=== PATIENT | female | born 1985 | race Caucasian/White ===

== ENCOUNTER 2016-03-06 21:03 | Emergency (ER) | payer OTHER ==
[~2016-03-06] VITALS: Ht 152.4 cm; Wt 51.7 kg
[~2016-03-06 21:03] MED LIST: AMOXICILLI400 MG/51 PO; AMOXICILLIN500 M2 PO; ATARAX25 MG PO; BACTRIM DS 8001 TA1 PO; BENADRYL25 M1 PO; DIPHEDRYL25 M3 PO; HYDROCORT CREAM2.5% TP; KEFLEX500 MG PO; KENALOG 0.1%80 GM T; KENALOG0.1% TP; MACROBID100 M1 PO; MOTRIN800 MG PO; NKHM; NORCO 325 MG-51 TAB PO; PEPCID20 MG PO; PERCOCET 325 MG1 TA6 PO; SPRINTEC 35 MCG1 TA2 PO; TERBUTALINE SC; ULTRAM50 MG PO; ZOFRAN ODT4 MG SL; ZOFRAN4 MG PO
[2016-03-06] MEDS ORDERED: VISTARIL50 MG PO (21:24)
[2016-03-06] MEDS ORDERED: ELIMITE 5%60 GM T (21:24)
[2016-03-17] MEDS ORDERED: LIDEX 0.05% CRE15 GM T (14:14)
== END 2016-03-06 21:33 | disposition home or self-care (01) ==
LOC: ED 21:03
DX: B86 Scabies (principal)

== ENCOUNTER 2016-05-19 14:25 | Emergency (ER) | payer OTHER ==
[~2016-05-19 14:25] MED LIST changes: +ELIMITE 5%60 GM T; +LIDEX 0.05% CRE15 GM T; +VISTARIL50 MG PO
[2016-05-19 14:42] LABS: BILIRUBIN 1+ (NEGATIVE); BLOOD 3+ (NEGATIVE); CLARITY TURBID (CLEAR); COLOR BROWN (YELLOW); GLUCOSE TRACE (NEGATIVE); KETONE TRACE (NEGATIVE); LEUKO ESTERASE TRACE (NEGATIVE); NITRITE POSITIVE (NEGATIVE); PH 6.5 (5.0-9.0); PROTEIN 3+ (NEGATIVE); SPECIFIC GRAVITY >= 1.030 (1.005-1.030)
[2016-05-19 14:50] LABS: EPITHELIAL CELLS TNTC; RBC TNTC rbc/hpf (0-2)
[2016-05-19 14:51] LABS: BACTERIA 1+; URINE REFLEX COMMENT YES (NO)
[2016-05-19] MEDS ORDERED: Bactrim 200 MG/30 ML PO (15:04)
== END 2016-05-19 15:09 | disposition home or self-care (01) ==
LOC: ED 14:25
PROVIDERS: Emergency Medicine Emergency Medical Services
DX: N30.01 Acute cystitis with hematuria (principal); J02.0 Streptococcal pharyngitis; Z98.51 Tubal ligation status

== ENCOUNTER 2017-02-18 18:56 | Emergency (ER) | payer OTHER ==
[~2017-02-18] VITALS: Ht 154.9 cm; Wt 57.6 kg
[~2017-02-18 18:56] MED LIST changes: +Bactrim 200 MG/30 ML PO
[2017-02-18] MEDS ORDERED: OMNICEF300 MG PO (19:46)
== END 2017-02-18 19:50 | disposition home or self-care (01) ==
LOC: ED 18:56
DX: H66.91 Otitis media, unspecified, right ear (principal); Z98.51 Tubal ligation status

== ENCOUNTER 2017-02-21 12:00 | Emergency (ER) | payer OTHER ==
[~2017-02-21] VITALS: Ht 154.9 cm; Wt 57.6 kg
[~2017-02-21 12:00] MED LIST changes: +OMNICEF300 MG PO
[2017-02-21] MEDS ORDERED: CIPRODEX 0.3%-7.5 ML OT (12:56)
== END 2017-02-21 13:01 | disposition home or self-care (01) ==
LOC: ED 12:00
DX: H66.92 Otitis media, unspecified, left ear (principal); Z98.51 Tubal ligation status

== ENCOUNTER 2018-09-11 11:46 | Emergency (ER) | payer OTHER ==
[~2018-09-11] VITALS: Ht 172.7 cm; Wt 71.7 kg
[~2018-09-11 11:46] MED LIST changes: +CIPRODEX 0.3%-7.5 ML OT
[2018-09-11] MEDS ORDERED: AMOXICILLIN500 M2 PO (12:45)
== END 2018-09-11 12:54 | disposition home or self-care (01) ==
LOC: ED 11:46
DX: J02.0 Streptococcal pharyngitis (principal); Z79.2 Long term (current) use of antibiotics

== ENCOUNTER 2019-04-29 19:16 | Emergency (ER) | payer OTHER ==
[~2019-04-29] VITALS: Ht 152.4 cm; Wt 63.5 kg
== END 2019-04-29 21:52 | disposition home or self-care (01) ==
LOC: ED 19:16
DX: S86.911A Strain of unspecified muscle(s) and tendon(s) at lower leg level, right leg, initial encounter (principal); Z79.2 Long term (current) use of antibiotics; Z87.891 Personal history of nicotine dependence; X58.XXXA Exposure to other specified factors, initial encounter; Y93.89 Activity, other specified; Y92.89 Other specified places as the place of occurrence of the external cause; Y99.8 Other external cause status

== ENCOUNTER 2020-10-23 23:25 | Emergency (ER) | payer OTHER ==
[~2020-10-23] VITALS: Ht 152.4 cm; Wt 63.5 kg
== END 2020-10-24 00:11 | disposition home or self-care (01) ==
LOC: ED 23:25
DX: S60.221A Contusion of right hand, initial encounter (principal); Z79.2 Long term (current) use of antibiotics; Z98.51 Tubal ligation status; W22.01XA Walked into wall, initial encounter; Y93.89 Activity, other specified; Y92.89 Other specified places as the place of occurrence of the external cause; Y99.8 Other external cause status

== ENCOUNTER 2020-10-25 11:41 | Emergency (ER) | payer OTHER ==
[~2020-10-25] VITALS: Wt 63.5 kg
== END 2020-10-25 16:39 | disposition home or self-care (01) ==
LOC: ED 11:41
DX: J02.9 Acute pharyngitis, unspecified (principal); Z20.822 Contact with and (suspected) exposure to COVID-19; R05 Cough; R19.7 Diarrhea, unspecified

== ENCOUNTER 2021-11-15 15:25 | Emergency (ER) | payer OTHER ==
[2021-11-15] MEDS ORDERED: AMOXICILLIN500 M2 PO (15:51)
== END 2021-11-15 15:57 | disposition home or self-care (01) ==
LOC: ED 15:25
DX: K02.9 Dental caries, unspecified (principal); Z98.51 Tubal ligation status